=== PATIENT | male | born 1960 | race Caucasian/White ===

== ENCOUNTER 2018-08-04 19:06 | Observation (INO) ==
[2018-08-04 19:24] LABS: Basophils # 0.1 K/mm3 (0-0.2); Basophils % 1.3 % (0.1-2.0); Eosinophils # 0.3 K/mm3 (0.0-0.4); Eosinophils % 4.9 % (0.1-12.0); Hematocrit 44.1 % (42.0-52.0); Hemoglobin 14.3 g/dL (14.1-18.0); Lymphocytes # 2.3 K/mm3 (0.7-4.5); Lymphocytes % 33.2 % (10-50); Mean Corpuscular HGB Conc 32.5 g/dL (31.8-35.4); Mean Corpuscular Volume 88.6 fl (80-94); Mean Platelet Volume 8.2 fl (7.4-10.4); Monocytes # 0.4 K/mm3 (0.1-1.0); Monocytes % 5.9 % (1.7-9.3); Neutrophils # 3.8 K/mm3 (1.8-7.8); Neutrophils % 54.6 % (37.0-80.0); Platelet Count 193 K/mm3 (142-424); Red Blood Count 4.97 M/mm3 (4.60-6.20); Red Cell Distribution Width 13.7 % (11.5-17.5)
[2018-08-04 19:40] LABS: Anion Gap 12.8 mEq/L (5-15); Blood Urea Nitrogen 15 mg/dL (7-18); Carbon Dioxide 28 mmol/L (21.0-32.0); Chloride 105 mmol/L (98-107); Glucose 119 mg/dL (74-106); Sodium 142 mmol/L (136-145)
--- NOTE | 2018-08-04 20:47 | Emergency Department Note ---
ED Disposition Clinical Impression: Obesity (BMI 30-39.9), Tobacco use Chest pain Qualifiers: Chest pain type: precordial pain Qualified Code(s): R07.2 - Precordial pain Disposition: Admitted as Observation Condition on Discharge: Good - Critical Care Critical Care Time: No Attestation: On 08/04/18, the high probability of a clinically significant, sudden or life threatening deterioration of the following system(s) required my full and direct attention, intervention and personal management. The time I documented below is in addition to time spent performing reported procedures but includes the following listed in this critical care notation. Medical Decision Making - Medical Records Medical records reviewed: Yes: I reviewed the patient's medical records. - Anthony Inquiry Pt receiving controlled substance: No Vital Signs: 08/04/18 19:07 08/04/18 19:37 08/04/18 20:40 Temperature 98.2 F Temperature Source Oral Pulse Rate [Right Brachial] 83 77 73 Respiratory Rate 18 19 18 Blood Pressure [Right Arm] 142/88 H 120/60 112/65 Blood Pressure Mean [Right Arm] 106 80 80 Blood Pressure Source [Right Arm] Automatic Cuff Automatic Cuff Automatic Cuff Blood Pressure Position [Right Arm] Sitting Supine Sitting 02 Sat by Pulse Oximetry 98 91 L 96 Oxygen Delivery Method Room Air Room Air Room Air - Lab Data Lab results reviewed: Yes: I reviewed the patient's lab results. Lab Results 08/04/18 19:10: WBC 7.0, RBC 4.97, Hgb 14.3, Hct 44.1, MCV 88.6, MCH 28.8, MCHC 32.5, RDW 13.7, Plt Count 193, MPV 8.2, Neut % (Auto) 54.6, Lymph % (Auto) 33.2, Holt % (Auto) 5.9, Eos % (Auto) 4.9, Baso % (Auto) 1.3, Neut # (Auto) 3.8, Lymph # (Auto) 2.3, Holt # (Auto) 0.4, Eos # (Auto) 0.3, Baso # (Auto) 0.1 08/04/18 19:10: Sodium 142, Potassium 3.8, Chloride 105, Carbon Dioxide 28, Anion Gap 12.8, BUN 15, Creatinine 1.18, Estimated Creat Clear 115, Estimated GFR 64, Est GFR ( Amer) 77, Glucose 119 H, Calcium 9.0, Troponin I < 0.02 Result diagrams: 08/04/18 19:10 08/04/18 19:10 Orders (Tests/Meds): ED MEDICATIONS Discontinued Medications Generic Name Dose Route Start Last Admin Trade Name Jessica PRN Reason Stop Dose Admin Aspirin 324 mg 08/04/18 19:14 08/04/18 19:31 Aspirin 81mg Chewable Tablet PO 08/04/18 19:15 324 mg ONCE ONE Administration Famotidine 20 mg 08/04/18 19:14 08/04/18 19:31 Pepcid 20mg/2ml Vial IV 08/04/18 19:15 20 mg ONCE ONE Administration Metoclopramide HCl 10 mg 08/04/18 19:14 08/04/18 19:31 Reglan 10mg/2ml Vial IVP 08/04/18 19:15 10 mg ONCE ONE Administration Nitroglycerin 1 gm 08/04/18 20:40 08/04/18 20:50 Nitroglycerin 1 Inch Oint Udp TD 08/04/18 20:41 1 gm ONCE ONE Administration ORDERS Category Date Time Status XR chest 2V Stat Exams 08/04/18 19:13 Taken ECG Request by /Nse Stat Y 08/04/18 19:13 Ordered - Radiology Data #1 Image(s): Chest Image Reviewed: Yes I reviewed the patient's radiology image Preliminary Findings: Normal/NAD - ECG Data Tracing #1 Normal Sinus Rhythm: Yes Ischemic changes: non-specific ST-T wave changes ECG compared to prior tracings: there are no prior tracings available for comparison Chest Pain HPI - General Chief Complaint: Chest Pain Stated Complaint: CP Time Seen by Provider: 08/04/18 20:00 Mode of Arrival: Ambulatory Source of Information: Patient, Spouse, Medical Record Limitations: No Limitations Description of Symptoms (Recalled from ER Triage Doc. by RN): Pt c/o cp that started this morning. NO other symptoms reported at this time. - History of Present Illness HPI narrative: pt with new onset of chest pain which was described as tightness and lasted 3-4 hrs and then returned this pm - he has no known heart disease - also has episode s of esophageal spasm over the last few months but pain today was different MD complaint: chest pain indicative of cardiac Onset (ago): hour(s) Duration: now resolved Activity at onset: during rest Pain location: left chest Severity: moderate Quality: tightness Associated symptoms: nausea Risk Factors for CAD: Family Hx of CAD, Smoking Treatments prior to or on arrival for Cardiac Chest Pain: none - JACKIE Score for Non-Stemi Age of Patient: 50-59 years old Heart Rate: 70-89 bpm Systolic Blood Pressure: 140-159 mmHg Serum Creatinine: 0.80-1.19 mg/dl CHF Killip Class: I-No CHF Other Risk Factors: None Non-Stemi Risk Score: 81 - Related Data Home Medications Medication Instructions Recorded Confirmed No Known Home Medications 08/04/18 08/04/18 Allergies Allergy/AdvReac Type Severity Reaction Status Date / Time No Known Allergies Allergy Verified 08/04/18 19:11 [facility] History - Hepatitis A Screen Drug use history?: No High risk sexual behaviors?: No History of sexually transmitted infection?: No Currently employed?: No Childcare worker?: No Do you have indoor plumbing?: Yes Do you have electricity?: Yes Attestation statement:: This patient has been screened for Hepatitis A risk factors. I have reviewed the patient's past medical history: Yes - Social History Smoking Status: Current every day smoker # Packs/Day (cigarettes): 1 Alcohol Intake: never Occupational Status: employed Housing: house - Psychiatric History Expresses thoughts of harming self/others: None Suicide Plan Description: No Plan ROS Obtained: Yes All systems reviewed & no additional complaints - Constitutional Constitutional: Denies fever(s) - Eyes Eyes: Denies change in vision - ENT Ears, Nose, Mouth, and Throat: Denies sore throat - Cardiovascular Cardiovascular: Reports chest pain - Respiratory Respiratory: No cough - Gastrointestinal Gastrointestingal: Denies: abdominal pain - Genitourinary Male Genitourinary: Denies hematuria - Musculoskeletal Musculoskeletal: Denies joint pain, Denies joint swelling - Integumentary/Breasts Skin/Breast: Denies rash - Neurologic Neurologic: Denies seizure-like activity Physical Exam - General General appearance: alert, obese - Head Head exam: normocephalic - Eye Eye exam: Present: PERRL, EOMI. Absent: scleral icterus - ENT ENT exam: Present: mucous membranes moist - Neck Neck exam: Present: trachea midline - Respiratory Respiratory exam: Present: normal lung sounds bilaterally. Absent: respiratory distress - Cardiovascular Cardiovascular exam: Present: regular rate, systolic murmur - Abdominal Exam Abdominal exam: Present: soft - Extremities Exam Extremities exam: Present: full ROM - Neurological Exam Neurological exam: Present: alert, oriented X3, CN II-XII intact - Psychiatric Psychiatric exam: Present: normal affect - Skin Skin exam: Absent: rash
[2018-08-05 06:26] LABS: Basophils # 0.1 K/mm3 (0-0.2); Basophils % 1.3 % (0.1-2.0); Eosinophils # 0.4 K/mm3 (0.0-0.4); Eosinophils % 5.3 % (0.1-12.0); Hematocrit 41.9 % (42.0-52.0); Hemoglobin 13.7 g/dL (14.1-18.0); Lymphocytes # 3.1 K/mm3 (0.7-4.5); Lymphocytes % 45.8 % (10-50); Mean Corpuscular HGB Conc 32.8 g/dL (31.8-35.4); Mean Corpuscular Volume 90.4 fl (80-94); Mean Platelet Volume 8.3 fl (7.4-10.4); Monocytes # 0.4 K/mm3 (0.1-1.0); Monocytes % 6.1 % (1.7-9.3); Neutrophils # 2.8 K/mm3 (1.8-7.8); Neutrophils % 41.5 % (37.0-80.0); Platelet Count 173 K/mm3 (142-424); Red Blood Count 4.63 M/mm3 (4.60-6.20); Red Cell Distribution Width 13.7 % (11.5-17.5); White Blood Count 6.7 K/mm3 (4.8-10.8)
[2018-08-05 06:34] LABS: Anion Gap 10.8 mEq/L (5-15); Calcium 8.4 mg/dL (8.5-10.1); Chol/HDL Ratio 6.2 (1-3.5)
--- NOTE | 2018-08-05 07:27 | Consult Report ---
History of Present Illness Consult date: 08/05/18 Requesting physician: Lan Rico Consult reason: chest pain Chief complaint: chest pain Additional Medical History:: 1. Tobacco use, 1/2 pack/day x 3 years, restarted after 28 years of not smoking 2. Overweight 3. Family history of Alzheimer's and his mother and cancer in his father 4. LDL 122, HDL 31, 08/05/2018 History of present illness: 58-year-old white male with complaint of chest pain from right shoulder to the left shoulder with some discomfort noted in the neck starting yesterday morning and lasting all day. No appreciable exacerbation or alleviation with work or rest. Some notation of chest burning sensation but denies associated shortness of breath, sweating or radiation of symptoms. Patient was at work when he informed coworkers of his discomfort who insisted he come to the ER for further evaluation. Patient's pain ranged from 2 out of 10 to an 8 out of 10 but was constant throughout the day. EKG is sinus rhythm with no acute ST segment changes. Troponins have returned normal overnight. Preliminary echocardiogram today shows preserved ejection fraction with no significant valvular heart disease. Patient quit smoking for 28 years but recently restarted half a pack a day due to stress. He has never been told he was diabetic and does not take medication for hypertension or hyperlipidemia. [facility] History *Have you ever received a pneumonia vaccine?: No *Have you received a flu vaccine this season?: No - *Social History Educational Level: Completed High School Smoking Status: Current every day smoker Tobacco Type: cigarettes # Packs/Day (cigarettes): 1 Alcohol Intake: never *Occupational Status:: employed Housing: house *Travel in the last 8 weeks: None - Psychiatric History Expresses thoughts of harming self/others: None Suicide Plan Description: No Plan Family Hx:: Cancer, Hypertension Meds Home Medications Medication Instructions Recorded Confirmed Type No Known Home Medications 08/04/18 08/04/18 History Allergies Allergy/AdvReac Type Severity Reaction Status Date / Time No Known Allergies Allergy Verified 08/04/18 19:11 Review of Systems - *Cardiovascular Reports chest pain, Denies shortness of breath - *Respiratory Denies cough, Denies shortness of breath - *Gastrointestinal Denies loose stools, Denies nausea, Denies vomiting - *Genitourinary Denies blood in urine - *Musculoskeletal Reports joint pain, Reports back pain - *Neurologic Denies lack of coordination, Denies seizure-like activity, Denies fainting Exam Vital signs and Labs for Last 24 Hours: Temp Pulse Resp BP Pulse Ox 98.3 F 61 19 139/79 96 08/05/18 04:00 08/05/18 04:00 08/05/18 04:00 08/05/18 04:00 08/05/18 04:00 Laboratory Results - last 24 hr 08/04/18 19:10: WBC 7.0, RBC 4.97, Hgb 14.3, Hct 44.1, MCV 88.6, MCH 28.8, MCHC 32.5, RDW 13.7, Plt Count 193, MPV 8.2, Neut % (Auto) 54.6, Lymph % (Auto) 33.2, [place] % (Auto) 5.9, Eos % (Auto) 4.9, Baso % (Auto) 1.3, Neut # (Auto) 3.8, Lymph # (Auto) 2.3, [place] # (Auto) 0.4, Eos # (Auto) 0.3, Baso # (Auto) 0.1 08/04/18 19:10: Sodium 142, Potassium 3.8, Chloride 105, Carbon Dioxide 28, Anion Gap 12.8, BUN 15, Creatinine 1.18, Estimated Creat Clear 115, Estimated GFR 64, Est GFR ( Amer) 77, Glucose 119 H, Calcium 9.0, Troponin I < 0.02 08/05/18 00:36: Troponin I < 0.02 08/05/18 03:34: Troponin I < 0.02 08/05/18 05:26: WBC 6.7, RBC 4.63, Hgb 13.7 L, Hct 41.9 L, MCV 90.4, MCH 29.6, MCHC 32.8, RDW 13.7, Plt Count 173, MPV 8.3, Neut % (Auto) 41.5, Lymph % (Auto) 45.8, [place] % (Auto) 6.1, Eos % (Auto) 5.3, Baso % (Auto) 1.3, Neut # (Auto) 2.8, Lymph # (Auto) 3.1, [place] # (Auto) 0.4, Eos # (Auto) 0.4, Baso # (Auto) 0.1 08/05/18 05:26: Sodium 143, Potassium 3.8, Chloride 107, Carbon Dioxide 29, Anion Gap 10.8, BUN 15, Creatinine 1.09, Estimated Creat Clear 127, Estimated GFR 70, Est GFR ( Amer) 84, Glucose 95 D, Calcium 8.4 L, Magnesium 1.9, Triglycerides 190, Cholesterol 191, LDL Cholesterol 122, VLDL Cholesterol 38, HDL Cholesterol 31, Cholesterol/HDL Ratio 6.2 H I & O for Last 24 hours: Intake & Output 08/02/18 08/03/18 08/04/18 08/05/18 11:59 11:59 11:59 11:59 Intake Total 354 / 354 Balance 354 / 354 Weight 265 lb - *Routine HEENT Exam Head: Present: normocephalic Eye: Present: EOMI, PERRL ENT: Present: mucous membranes moist - *Routine Neck Exam Present: supple. Absent: JVD, carotid bruit - *Routine Respiratory Exam Present: CTA bilaterally. Absent: accessory muscle use, rales, rhonchi, wheezes - *Routine Cardiovascular Exam Present: RRR. Absent: murmur, gallop, rubs - *Routine Abdominal Exam Present: soft. Absent: tenderness, distended, guarding - *Routine Extremities Exam Absent: edema, calf tenderness - *Routine Neurological Exam Present: alert, oriented X3, moving all extremities Assessment and Plan (1) Chest pain Current visit: Yes Status: Acute Qualifiers: Chest pain type: precordial pain Qualified Code(s): R07.2 - Precordial pain Category: Medical Code(s): R07.9 - Chest pain, unspecified (2) Obesity (BMI 30-39.9) Current visit: Yes Status: Acute Category: Medical Code(s): E66.9 - Obesity, unspecified (3) Tobacco use Current visit: Yes Status: Acute Category: Medical Code(s): Z72.0 - Tobacco use - Assessment and plan all Dx Assessment and Plan for all problems:: 1. Prolonged chest pain with normal troponins, EKG and essentially normal echo with preliminary reading. Recommend proceeding with routine stress test this a.m. If patient develops recurrent chest pain or EKG abnormalities then would recommend further evaluation. 2. Official echocardiogram reading pending. 3. Further recommendations to follow.
--- NOTE | 2018-08-05 07:30 | Pharmacy Consult Notes ---
[facility] Pharmacy VTE Monitoring - Patient Demographics Admission date: 08/04/18 Report Date: 08/05/18 Time: 07:30 Allergies/Adverse Reactions: Patient Allergies No Known Allergies Allergy (Verified 08/04/18 19:11) Height: 1.78 m Weight: 120.202 kg Patient Problems: Current Active Problems (Updated 08/04/18 @ 21:24 by Lan Rico MD) Chest pain (Acute) Obesity (BMI 30-39.9) (Acute) Tobacco use (Acute) - VTE Risk Labs: VTE Related Lab Results Hgb 13.7 g/dL (14.1-18.0) L 08/05/18 05:26 Hct 41.9 % (42.0-52.0) L 08/05/18 05:26 Plt Count 173 K/mm3 (142-424) 08/05/18 05:26 BUN 15 mg/dL (7-18) 08/05/18 05:26 Creatinine 1.09 mg/dL (0.70-1.30) 08/05/18 05:26 Estimated Creat Clear 127 mL/min (50-200) 08/05/18 05:26 Was VTE Risk Assessment Performed: Yes VTE Score: 2 Clinical Trial Participant: No - Prophylaxis VTE Prophylaxis Ordered?: Yes Types of VTE Prophylaxis: TEDS Knee High
--- NOTE | 2018-08-05 12:50 | H&P/Discharge Summary ---
General - General Admission date:: 08/04/18 Discharge date: 08/05/18 *Admission Date: 08/04/18 *Chief complaint: chest pain *History of present illness: 58-year-old white male with complaint of chest pain from right shoulder to the left shoulder with some discomfort noted in the neck starting yesterday morning and lasting all day. No appreciable exacerbation or alleviation with work or rest. Some notation of chest burning sensation but denies associated shortness of breath, sweating or radiation of symptoms. Patient was at work when he informed coworkers of his discomfort who insisted he come to the ER for further evaluation. Patient's pain ranged from 2 out of 10 to an 8 out of 10 but was constant throughout the day. EKG is sinus rhythm with no acute ST segment changes. Troponins have returned normal overnight.- Pt states he received meds in ed for heart burn and it helped. Preliminary echocardiogram today shows preserved ejection fraction with no significant valvular heart disease. Patient quit smoking for 28 years but recently restarted half a pack a day due to stress. He has never been told he was diabetic and does not take medication for hypertension or hyperlipidemia.-per sunil prado [facility] History I have reviewed the patient's past medical history: Yes *Have you ever received a pneumonia vaccine?: No *Have you received a flu vaccine this season?: No - *Social History Educational Level: Completed High School Smoking Status: Current every day smoker Tobacco Type: cigarettes # Packs/Day (cigarettes): 1 Alcohol Intake: never *Occupational Status:: employed Housing: house *Travel in the last 8 weeks: None - Psychiatric History Expresses thoughts of harming self/others: None Suicide Plan Description: No Plan Family Hx:: Cancer, Hypertension Review of Systems - Constitutional Denies chills, Denies fatigue, Denies fever(s), Denies lack of energy - Eyes Denies change in vision - ENT Denies neck pain - *Cardiovascular Reports chest pain, Reports chest pain at rest, Denies generalized swelling - *Respiratory Denies chest congestion - *Gastrointestinal Denies loose stools - *Genitourinary Denies urinary frequency - *Musculoskeletal Denies neck pain - Integumentary/Breasts Denies rash - *Neurologic Denies abnormal movements, Denies lack of coordination, Denies seizure-like activity, Denies fainting, Denies weakness - Psychiatric Denies anxiety, Denies panic attacks - Endocrine Denies flushing - Hematologic/Lymphatic Denies enlarged lymph nodes - Allergic/Immunologic Denies itchy eyes Exam Vital signs and Labs for Last 24 Hours: Temp Pulse Resp BP Pulse Ox 97.9 F 61 18 111/63 99 08/05/18 11:29 08/05/18 11:29 08/05/18 11:29 08/05/18 11:29 08/05/18 11:29 Laboratory Results - last 24 hr 08/04/18 19:10: WBC 7.0, RBC 4.97, Hgb 14.3, Hct 44.1, MCV 88.6, MCH 28.8, MCHC 32.5, RDW 13.7, Plt Count 193, MPV 8.2, Neut % (Auto) 54.6, Lymph % (Auto) 33.2, [place] % (Auto) 5.9, Eos % (Auto) 4.9, Baso % (Auto) 1.3, Neut # (Auto) 3.8, Lymph # (Auto) 2.3, [place] # (Auto) 0.4, Eos # (Auto) 0.3, Baso # (Auto) 0.1 08/04/18 19:10: Sodium 142, Potassium 3.8, Chloride 105, Carbon Dioxide 28, An ion Gap 12.8, BUN 15, Creatinine 1.18, Estimated Creat Clear 115, Estimated GFR 64, Est GFR ( Amer) 77, Glucose 119 H, Calcium 9.0, Troponin I < 0.02 08/05/18 00:36: Troponin I < 0.02 08/05/18 03:34: Troponin I < 0.02 08/05/18 05:26: WBC 6.7, RBC 4.63, Hgb 13.7 L, Hct 41.9 L, MCV 90.4, MCH 29.6, MCHC 32.8, RDW 13.7, Plt Count 173, MPV 8.3, Neut % (Auto) 41.5, Lymph % (Auto) 45.8, [place] % (Auto) 6.1, Eos % (Auto) 5.3, Baso % (Auto) 1.3, Neut # (Auto) 2.8, Lymph # (Auto) 3.1, [place] # (Auto) 0.4, Eos # (Auto) 0.4, Baso # (Auto) 0.1 08/05/18 05:26: Sodium 143, Potassium 3.8, Chloride 107, Carbon Dioxide 29, Anion Gap 10.8, BUN 15, Creatinine 1.09, Estimated Creat Clear 127, Estimated GFR 70, Est GFR ( Amer) 84, Glucose 95 D, Calcium 8.4 L, Magnesium 1.9, Triglycerides 190, Cholesterol 191, LDL Cholesterol 122, VLDL Cholesterol 38, HDL Cholesterol 31, Cholesterol/HDL Ratio 6.2 H I & O for Last 24 hours: Intake & Output 08/03/18 08/04/18 08/05/18 08/06/18 11:59 11:59 11:59 11:59 Intake Total 354 / 354 Balance 354 / 354 Weight 265 lb - Constitutional no acute distress - *Routine HEENT Exam Head: Present: normocephalic Eye: Present: EOMI, PERRL ENT: Present: mucous membranes moist - *Routine Neck Exam Present: supple. Absent: lymphadenopathy - *Routine Respiratory Exam Present: CTA bilaterally - *Routine Cardiovascular Exam Present: RRR - *Routine Abdominal Exam Present: soft, normoactive bowel sounds. Absent: tenderness - *Routine Extremities Exam Absent: cyanosis, clubbing, edema - *Routine Skin Exam Present: warm. Absent: rash - *Routine Neurological Exam Present: alert, oriented X3 Hospital Course Hospital Course: pt received iv meds for gerd in ed that relieved pain instantly. Pt had stress test today due to hx of smoking and obesity. Pt discharged home with negative cardiac work up. Cardiology consult obtained- see note. Pt will need to follow up as a outpt for more work up on gerd. Results Labs on day of discharge: Labs from last 24 hours 08/05/18 08/05/18 08/05/18 05:26 05:26 03:34 WBC 6.7 RBC 4.63 Hgb 13.7 L Hct 41.9 L MCV 90.4 MCH 29.6 MCHC 32.8 RDW 13.7 Plt Count 173 MPV 8.3 Neut % (Auto) 41.5 Lymph % (Auto) 45.8 [place] % (Auto) 6.1 Eos % (Auto) 5.3 Baso % (Auto) 1.3 Neut # (Auto) 2.8 Lymph # (Auto) 3.1 [place] # (Auto) 0.4 Eos # (Auto) 0.4 Baso # (Auto) 0.1 Sodium 143 Potassium 3.8 Chloride 107 Carbon Dioxide 29 Anion Gap 10.8 BUN 15 Creatinine 1.09 Estimated Creat Clear 127 Estimated GFR 70 Est GFR ( Amer) 84 Glucose 95 D Calcium 8.4 L Magnesium 1.9 Troponin I < 0.02 Triglycerides 190 Cholesterol 191 LDL Cholesterol 122 VLDL Cholesterol 38 HDL Cholesterol 31 Cholesterol/HDL Ratio 6.2 H 08/05/18 08/04/18 08/04/18 00:36 19:10 19:10 WBC 7.0 RBC 4.97 Hgb 14.3 Hct 44.1 MCV 88.6 MCH 28.8 MCHC 32.5 RDW 13.7 Plt Count 193 MPV 8.2 Neut % (Auto) 54.6 Lymph % (Auto) 33.2 [place] % (Auto) 5.9 Eos % (Auto) 4.9 Baso % (Auto) 1.3 Neut # (Auto) 3.8 Lymph # (Auto) 2.3 [place]ancock # (Auto) 0.4 Eos # (Auto) 0.3 Baso # (Auto) 0.1 Sodium 142 Potassium 3.8 Chloride 105 Carbon Dioxide 28 Anion Gap 12.8 BUN 15 Creatinine 1.18 Estimated Creat Clear 115 Estimated GFR 64 Est GFR ( Amer) 77 Glucose 119 H Calcium 9.0 Magnesium Troponin I < 0.02 < 0.02 Triglycerides Cholesterol LDL Cholesterol VLDL Cholesterol HDL Cholesterol Cholesterol/HDL Ratio - Additional Comments rounded with dr paredes all orders per dr paredes. DS: Diagnosis - Discharge Diagnosis (1) Chest pain Status: Acute (2) Obesity (BMI 30-39.9) Status: Acute (3) Tobacco use Status: Acute Discharge Plan - Patient Discharge Instructions ACTIVITY: Continue current activity DIET: continue same diet Patient Instructions: Nicotine Addiction, DI for Cardiac Stress Test, DI for Chest Pain - Follow up Plan Follow up with: Juan José Jeff MD [Staff Physician] - 1 week Disposition: Home, Self-Correction Medications: Home Medications Medication Instructions Recorded Confirmed Type No Known Home Medications 08/04/18 08/04/18 History Famotidine [Pepcid 20mg Tablet] 20 mg PO DAILY 30 Days #30 tab 08/05/18 Rx Prescriptions/Medication Reconciliation: New Famotidine [Pepcid 20mg Tablet] 20 mg PO DAILY 30 Days #30 tab No Action No Known Home Medications
--- NOTE | 2018-08-05 16:08 | Cardiology Report ---
PROCEDURE: 2-D M-mode and color Doppler study INDICATIONS FOR THE TEST: Chest pain + COPD Heart Murmur Tobacco Smoking+ Palpitations Fatigue Syncope Edema Hypertension Diabetes Mellitus Rheumatic Fever SOB NICOLE Obesity Hyperlipidemia Family History HD Additional History PATIENT INFORMATION HEIGHT:70 WEIGHT:260 GENDER: Male B/P:112/65 2-D/M-MODE INTERPRETATION: 2-D MEASUREMENTS OBSERVED VALUES IN CMS Right Ventricular Dimension (RVDd) 2.8 Interventricular Septum (Thickness)(IVsd) 1.5 Left Ventricular Internal Dimensions(LVIDd) 4.6 Left Ventricular Posterior Wall (Thickness)(LVPWd) 1.4 Aortic Root 3.3 Aortic Cusp Separation 2.1 Left Atrial Dimensions (LAD) 3.9 2D 1. Technically difficult study because of the patient's factor and poor acoustic windows 2. Left atrium is mildly enlarged, left ventricle is normal size, left ventricle wall thickness is upper limits of normal, there is preserved left ventricular systolic function, visually estimated ejection fraction 55% with no regional wall motion abnormality, endocardial surfaces are poorly visualized. 3. The right atrium and right ventricle appears to be moderately enlarged with normal contractility. 4. The aortic valve is minimally thickened and fibrosed. 5. The mitral and tricuspid valvular grossly normal. 6. The pulmonic valve is poorly visualized 7. No significant pericardial effusion noted. DOPPLER INTERROGATION: Doppler interrogation of the aortic, mitral and tricuspid valvular presence of mild mitral and tricuspid regurgitation, tricuspid regurgitation jet velocity is inadequate for calculation of the right ventricular systolic pressure, diastolic parameters are inconclusive. CONCLUSION: 1. Technically difficult study because of the patient's factors and poor acoustic windows 2. Biatrial enlargement, normal left ventricular size, visually estimated ejection fraction 55% with no regional wall motion abnormality, diastolic parameters are inconclusive. 3. Moderately enlarged right ventricle with normal contractility. 4. Mild mitral and tricuspid regurgitation 5. No significant pericardial effusion noted.
== END 2018-08-05 13:45 | disposition home or self-care (01) ==
LOC: 2ND 19:06 → ER 19:06 → 2ND 21:33
PROVIDERS: ADMIT Emergency Medicine; ATTEND Emergency Medicine
DX: E66.9 Obesity, unspecified; Z80.9 Family history of malignant neoplasm, unspecified; K21.9 Gastro-esophageal reflux disease without esophagitis; R07.9 Chest pain, unspecified; Z72.0 Tobacco use; Z81.8 Family history of other mental and behavioral disorders
CPT/HCPCS: 36415; 71020; 71046; 80048; 80061; 83735; 84484; 85025; 93005; 93017; 93306; 96374; 96375; 99284; G0378

== ENCOUNTER → 2019-08-10 13:19 | Outpatient (CLI) | payer BC, SELFPAY ==
[2019-08-10 13:28] LABS: Basophils # 0.1 K/mm3 (0-0.2); Eosinophils # 0.3 K/mm3 (0.0-0.4); Eosinophils % 4.8 % (0.1-12.0); Hemoglobin 15.7 g/dL (14.1-18.0); Lymphocytes # 2.7 K/mm3 (0.7-4.5); Lymphocytes % 38.6 % (10-50); Mean Corpuscular HGB Conc 33.4 g/dL (31.8-35.4); Mean Corpuscular Hemoglobin 31.7 pg (27.0-31.2); Mean Platelet Volume 9.5 fl (7.4-10.4); Monocytes # 0.4 K/mm3 (0.1-1.0); Monocytes % 5.8 % (1.7-9.3); Neutrophils # 3.5 K/mm3 (1.8-7.8); Neutrophils % 48.8 % (37.0-80.0); Platelet Count 204 K/mm3 (142-424); Red Blood Count 4.95 M/mm3 (4.60-6.20); Red Cell Distribution Width 14.6 % (11.5-17.5); White Blood Count 7.1 K/mm3 (4.8-10.8)
[2019-08-10 13:40] LABS: Chloride 105 mmol/L (98-107); Potassium 4.4 mmoL/L (3.5-5.1); Sodium 138 mmol/L (136-145)
[2019-08-10 13:42] LABS: Alanine Aminotransferase 30 U/L (12-78); Aspartate Amino Transferase 30 U/L (17-59); Blood Urea Nitrogen 15 mg/dl (9-20); Estimated Glomerular Filt Rate 69 ml/min (>60); GFR (African American) 83 ML/MIN (>60)
[2019-08-10 13:43] LABS: Albumin Level 3.9 g/dl (3.5-5.0); Albumin/Globulin Ratio 1.2 (1.1-1.8); Alkaline Phosphatase 69 U/L (38-126); Anion Gap 8.4 mEq/L (5-15); Bilirubin,Total 0.5 mg/dl (0.2-1.3); Calcium 9.1 mg/dl (8.4-10.2); Carbon Dioxide 29 mmol/L (22.0-30.0); Cholesterol 263 mg/dl (140-200); Globulin 3.2 g/dL (1.3-3.2); Glucose 100 mg/dl (74-100); Total Protein,Serum 7.1 g/dl (6.3-8.2); Triglycerides 334 mg/dl (30-150); VLDL Cholesterol 67 mg/dL (0-40)
[2019-08-10 13:44] LABS: Chol/HDL Ratio 5.4 (1-3.5); HDL Cholesterol 49 mg/dl (40-60)
[2019-08-10 13:55] LABS: Direct LDL Cholesterol 147.91 mg/dL (100-129)
[2019-08-10 14:02] LABS: T4 (Thyroxine) 6.6 ug/dl (5.53-11.0)
[2019-08-10 14:15] LABS: Thyroid Stimulating Hormone 3.63 uIU/mL (0.465-4.68)
[2019-08-14 08:33] LABS: 1,25 Dihydroxy Vitamin D 37 pg/mL (.); 1,25-Dihydroxy, Vitamin D-2 <10 pg/mL (.); 1,25-Dihydroxy, Vitamin D-3 37 pg/mL (.)
== END ==
PROVIDERS: Visit Provider Emergency Medicine
DX: R13.10 Dysphagia, unspecified (principal)
CPT/HCPCS: 80053; 80061; 82652; 84436; 84443; 85025

== ENCOUNTER → 2019-08-19 09:19 | Outpatient (CLI) | payer BC, SELFPAY ==
--- NOTE | 2019-08-19 09:20 | FL_ITS ---
PROCEDURE: FL BARIUM SWALLOW CLINICAL INDICATION: dysphagia especially with swallowing Herrera COMPARISON: No exams were available for comparison TECHNIQUE: In the upright position the patient was observed to swallow barium in both the AP and lateral view. The cervical esophagus was examined under fluoroscopy with images obtained. The patient was then placed prone in the right anterior oblique position and was observed to swallow barium with Valsalva technique . FLUOROSCOPY TIME: 1 minute 47 seconds FINDINGS: There was no evidence of aspiration. There was normal peristalsis. No filling defects or mucosal abnormalities. Spot films of the cervical esophagus while swallowing barium shows mild anterior osteophytic spurring at the C5-6 level causing mild posterior indentation of the barium column which could probably be a cause for the patient's symptoms. There is a small to moderate size sliding hiatal hernia but there is no significant GE reflux with the patient in the prone and supine positions. IMPRESSION: Mild degenerate changes lower cervical spine C5-6 level probably causing some dysphagia symptoms to solid foods along with a small to moderate-sized hiatal hernia Dictated by: Dr. Ashkan Brady MD 08/19/2019 10:[address] Ashkan Brady MD in [place] 08/19/2019 10:10
== END ==
PROVIDERS: PCP Emergency Medicine; Visit Provider Emergency Medicine
DX: R13.10 Dysphagia, unspecified (principal)
CPT/HCPCS: 74220

== ENCOUNTER → 2019-08-26 15:22 | Outpatient (CLI) | payer BC, SELFPAY ==
--- NOTE | 2019-08-26 15:24 | XR_ITS ---
PROCEDURE: XR CERVICAL SPINE 5V CLINICAL INDICATION: spurring on c5/c6 difficulty swallowing COMPARISON: No exams were available for comparison FINDINGS: There is normal alignment. Degenerative disc disease is present at C6-C7. There are mildly prominent anterior osteophytes at C5-C6 and C6-C7. There is minimal cervical curvature convex right. Mild facet arthritic changes are present on the left at C6-C7 and C4-C5. No fracture or dislocation. No lytic or blastic change. IMPRESSION: degenerative changes as described above Dictated by: Byron Watt MD 08/26/2019 17:11 Electronically signed by Byron Watt MD in [place] 08/26/2019 17:11
== END ==
PROVIDERS: PCP Emergency Medicine; Visit Provider Physician Assistant
DX: M25.78 Osteophyte, vertebrae (principal)
CPT/HCPCS: 72050

== ENCOUNTER 2019-09-08 15:26 | Emergency (ER) | payer BC, SELFPAY ==
[2019-09-08 15:53] VITALS: PULSE 91; RESP 16; TEMP 36.9; O2SAT 98; BMI 41.5
--- NOTE | 2019-09-08 15:58 | HMH.EDUTC ---
[facility] [place] Disposition Clinical Impression: Sinusitis Qualifiers: Sinusitis location: unspecified location Chronicity: acute Recurrence: non-recurrent Qualified Code(s): J01.90 - Acute sinusitis, unspecified Disposition: Home, Self-Care Condition on Discharge: Good Instructions: Sinusitis, DI for Sinusitis Prescriptions: Benzonatate [Tessalon Perle 100mg Cap] 100 mg PO TIDP PRN #30 cap PRN Reason: Cough Transmission Status: Received by [facility] #[id number] Azithromycin [Z-Jose F 250mg Tab*] 250 mg PO UD DOSE PK #6 tab Transmission Status: Received by [facility] #[id number] Referrals: Lan Rico MD [Primary Care Provider] - Time of Disposition: 16:04 Medical Decision Making - Medical Records Medical records reviewed: No: I reviewed the patient's medical records. - Anthony Inquiry Pt receiving controlled substance: No Vital Signs: 09/08/19 15:53 09/08/19 16:35 Temperature 98.5 F 98.3 F Temperature Source Oral Oral Pulse Rate 87 Pulse Rate [Right] 91 H Respiratory Rate 16 16 Blood Pressure 0/0 L Blood Pressure Source Automatic Cuff Blood Pressure Position Sitting 02 Sat by Pulse Oximetry 98 Oxygen Delivery Method Room Air Room Air [facility] [place] HPI - General Stated complaint: Sinus drainage Time Seen by Provider: 09/08/19 15:58 Mode of Arrival: Ambulatory Source of Information: Patient Limitations: No Limitations Description of Symptoms (Recalled from Triage Doc. by RN): PT c/o ear pain and popping when he lays down along with a cough HEENT Symptoms (Recalled from RN notes): Yes (ear pain/ cough) Resp Symptoms (Recalled from RN notes): No Skin Symptoms (Recalled from RN notes): No MS Symptoms (Recalled from RN notes): No Functional Status (Recalled from RN notes): na - History of Present Illness Provider Complaint: He c/o sinus pressure, bilateral ear pressure and a cough for the past past 4 days. - Related Data Previous Rx's Medication Instructions Recorded sildenafil (pulm.hypertension) 20 20 mg PO TID #30 tab 08/10/19 mg tablet phentermine 37.5 mg tablet 37.5 mg PO DAILY #30 tab 08/12/19 simvastatin 20 mg tablet 20 mg PO QHS #90 tab 08/15/19 prednisone 20 mg tablet 20 mg PO BID #10 tab 08/31/19 triamcinolone acetonide 0.05 % 1 applic TOPICAL BID #60 g 08/31/19 topical ointment Azithromycin [Z-Jose F 250mg Tab*] 250 mg PO UD DOSE PK #6 tab 09/08/19 Benzonatate [Tessalon Perle 100mg 100 mg PO TIDP PRN #30 cap 09/08/19 Cap] Allergies Allergy/AdvReac Type Severity Reaction Status Date / Time No Known Allergies Allergy Verified 09/02/19 11:52 - Worker's Comp Is this a Worker's Comp case?: No [facility] History - Hepatitis A Screen Drug use history?: No High risk sexual behaviors?: No History of sexually transmitted infection?: No Currently employed?: No Childcare worker?: No Do you have indoor plumbing?: Yes Do you have electricity?: Yes Attestation statement:: This patient has been screened for Hepatitis A risk factors. I have reviewed the patient's past medical history: Yes Medical History: Reports:: Hyperlipidemia Other Surgeries: Yes: Cholecystectomy Amputation: No Fractures: Yes (FINGERS,ANKLE AND SKULL) Comment: left hand,rt finger - Social History Smoking Status: Current every day smoker Tobacco Type: cigarettes # Packs/Day (cigarettes): 1 Alcohol Intake: never Substance Use Type: denies use Occupational Status: employed Housing: house Family Hx:: Cancer, Hypertension ROS Obtained: Yes All systems reviewed & no additional complaints - Constitutional Constitutional: Denies chills, Denies fever(s) - Eyes Eyes: Denies eye discharge - ENT Ears, Nose, Mouth, and Throat: Reports as per HPI - Cardiovascular Cardiovascular: Denies chest pain - Respiratory Respiratory: No chest congestion, Yes cough, No dyspnea, No coughing up blood, No stridor, No wheezing Physical Exam - General General appearance: alert, in no apparent distress -
[2019-09-08 16:35] VITALS: BP 0/0; PULSE 87; RESP 16; TEMP 36.8; O2SAT 98
== END 2019-09-08 16:36 | disposition home or self-care (01) ==
PROVIDERS: Emergency Provider Nurse Practitioner Family; PCP Emergency Medicine
DX: J01.90 Acute sinusitis, unspecified (principal); E78.5 Hyperlipidemia, unspecified; F17.210 Nicotine dependence, cigarettes, uncomplicated
CPT/HCPCS: 99201

== ENCOUNTER → 2019-11-01 14:53 | Outpatient (CLI) | payer BC, SELFPAY | PROVIDERS: PCP Emergency Medicine; Visit Provider Nurse Practitioner Family | DX: R06.2 Wheezing (principal); Z72.0 Tobacco use | CPT/HCPCS: 94060; 94726; 94729 ==

== ENCOUNTER → 2020-03-19 19:06 | Outpatient (CLI) | payer BC, SELFPAY ==
[2020-03-19 21:45] LABS: Amphetamine/Metha Screen,Urine Negative ng/ml (<1000); Barbiturates Screen,Urine Negative ng/ml (<200)
[2020-03-19 21:46] LABS: Benzodiazepines Screen,Urine Negative ng/ml (<200); Cannabinoid Screen,Urine Negative ng/ml (<50)
[2020-03-19 21:47] LABS: Cocaine Screen,Urine Negative ng/ml (<300)
[2020-03-19 21:48] LABS: Methadone Screen,Urine Negative ng/ml (<300); Opiate Screen,Urine Negative ng/ml (<300)
[2020-03-19 21:49] LABS: Phencyclidine Screen,Urine Negative ng/ml (<25)
== END ==
PROVIDERS: Visit Provider Emergency Medicine
DX: Z79.899 Other long term (current) drug therapy (principal)
CPT/HCPCS: 80305

== ENCOUNTER → 2020-05-29 16:06 | Outpatient (CLI) | payer BC, SELFPAY ==
--- NOTE | 2020-05-29 16:12 | XR_ITS ---
PROCEDURE: XR SHOULDER RT MIN 2V CLINICAL INDICATION: shoulder pain COMPARISON: No exams were available for comparison FINDINGS: No fracture or dislocation. No lytic or blastic change. There is normal mineralization. There is high-riding humeral head with moderate to severe subacromial stenosis which may be seen with rotator cuff tear. No significant osteoarthritic change apparent. Other findings:None. IMPRESSION: High-riding humeral head with subacromial stenosis Dictated by: Byron Watt MD 05/29/2020 16:33 Byron Watt MD in [place] 05/29/2020 16:33
[2020-05-29 21:11] LABS: Amphetamine/Metha Screen,Urine Negative ng/ml (<1000)
[2020-05-29 21:12] LABS: Barbiturates Screen,Urine Negative ng/ml (<200); Benzodiazepines Screen,Urine Negative ng/ml (<200)
[2020-05-29 21:13] LABS: Cannabinoid Screen,Urine Negative ng/ml (<50)
[2020-05-29 21:14] LABS: Cocaine Screen,Urine Negative ng/ml (<300); Methadone Screen,Urine Negative ng/ml (<300)
[2020-05-29 21:15] LABS: Opiate Screen,Urine Negative ng/ml (<300)
[2020-05-29 21:16] LABS: Phencyclidine Screen,Urine Negative ng/ml (<25)
== END ==
PROVIDERS: PCP Emergency Medicine; Visit Provider Nurse Practitioner Family
DX: M25.511 Pain in right shoulder (principal); Z79.899 Other long term (current) drug therapy
CPT/HCPCS: 73030; 80305

== ENCOUNTER → 2020-07-09 17:58 | Outpatient (CLI) | payer BC, SELFPAY ==
[2020-07-09 19:49] LABS: Amphetamine/Metha Screen,Urine Negative ng/ml (<1000); Barbiturates Screen,Urine Negative ng/ml (<200)
[2020-07-09 19:50] LABS: Benzodiazepines Screen,Urine Negative ng/ml (<200)
[2020-07-09 19:51] LABS: Cannabinoid Screen,Urine Negative ng/ml (<50); Methadone Screen,Urine Negative ng/ml (<300)
[2020-07-09 19:52] LABS: Cocaine Screen,Urine Negative ng/ml (<300); Opiate Screen,Urine Negative ng/ml (<300)
[2020-07-09 19:53] LABS: Phencyclidine Screen,Urine Negative ng/ml (<25)
== END ==
PROVIDERS: Visit Provider Emergency Medicine
DX: M25.511 Pain in right shoulder (principal)
CPT/HCPCS: 80305

== ENCOUNTER → 2020-09-05 17:17 | Outpatient (CLI) | payer BC, SELFPAY ==
[2020-09-06 00:26] LABS: Amphetamine/Metha Screen,Urine Negative ng/ml (<1000); Barbiturates Screen,Urine Negative ng/ml (<200); Benzodiazepines Screen,Urine Negative ng/ml (<200); Cannabinoid Screen,Urine Negative ng/ml (<50); Cocaine Screen,Urine Negative ng/ml (<300); Methadone Screen,Urine Negative ng/ml (<300); Opiate Screen,Urine Negative ng/ml (<300); Phencyclidine Screen,Urine Negative ng/ml (<25)
== END ==
PROVIDERS: Visit Provider Emergency Medicine
DX: Z79.899 Other long term (current) drug therapy (principal)
CPT/HCPCS: 80305

== ENCOUNTER → 2020-11-05 17:48 | Outpatient (CLI) | payer BC, SELFPAY ==
[2020-11-05 18:40] LABS: Amphetamine/Metha Screen,Urine Negative ng/ml (<1000); Barbiturates Screen,Urine Negative ng/ml (<200)
[2020-11-05 18:41] LABS: Benzodiazepines Screen,Urine Negative ng/ml (<200)
[2020-11-05 18:42] LABS: Cannabinoid Screen,Urine Negative ng/ml (<50); Cocaine Screen,Urine Negative ng/ml (<300)
[2020-11-05 18:43] LABS: Methadone Screen,Urine Negative ng/ml (<300)
[2020-11-05 18:44] LABS: Opiate Screen,Urine Negative ng/ml (<300)
[2020-11-05 18:45] LABS: Phencyclidine Screen,Urine Negative ng/ml (<25)
== END ==
PROVIDERS: Visit Provider Emergency Medicine
DX: Z79.899 Other long term (current) drug therapy (principal)
CPT/HCPCS: 80305

== ENCOUNTER → 2020-12-31 14:40 | Outpatient (CLI) | payer BC, SELFPAY | PROVIDERS: PCP Emergency Medicine; Visit Provider Nurse Practitioner | DX: Z20.822 Contact with and (suspected) exposure to COVID-19 (principal) | CPT/HCPCS: C9803; U0003; U0005 ==

== ENCOUNTER 2021-01-21 08:05 | Outpatient (CLI) | payer BC, SELFPAY ==
[2021-01-21] VITALS (8 sets, daily range): BP systolic 115–148; BP diastolic 55–84; PULSE 82–95; RESP 20–22; TEMP 38.1; O2SAT 93–95
== END 2021-01-21 10:35 | disposition home or self-care (01) ==
LOC: INF 08:05
PROVIDERS: PCP Emergency Medicine; Visit Provider Emergency Medicine
DX: U07.1 COVID-19 (principal); Z23 Encounter for immunization
CPT/HCPCS: 96365

== ENCOUNTER → 2021-01-29 18:57 | Outpatient (CLI) | payer BC, SELFPAY ==
[2021-01-29 20:43] LABS: Amphetamine/Metha Screen,Urine Negative ng/ml (<1000)
[2021-01-29 20:44] LABS: Barbiturates Screen,Urine Negative ng/ml (<200)
[2021-01-29 20:45] LABS: Benzodiazepines Screen,Urine Negative ng/ml (<200); Cannabinoid Screen,Urine Negative ng/ml (<50)
[2021-01-29 20:46] LABS: Cocaine Screen,Urine Negative ng/ml (<300)
[2021-01-29 20:47] LABS: Methadone Screen,Urine Negative ng/ml (<300); Opiate Screen,Urine Negative ng/ml (<300)
[2021-01-29 20:48] LABS: Phencyclidine Screen,Urine Negative ng/ml (<25)
== END ==
PROVIDERS: Visit Provider Emergency Medicine
DX: Z79.899 Other long term (current) drug therapy (principal)
CPT/HCPCS: 80305

== ENCOUNTER → 2021-03-27 16:00 | Outpatient (CLI) | payer BC, SELFPAY ==
[2021-03-27 22:12] LABS: Amphetamine/Metha Screen,Urine Negative ng/ml (<1000); Barbiturates Screen,Urine Negative ng/ml (<200)
[2021-03-27 22:13] LABS: Benzodiazepines Screen,Urine Negative ng/ml (<200)
[2021-03-27 22:14] LABS: Cannabinoid Screen,Urine Negative ng/ml (<50); Cocaine Screen,Urine Negative ng/ml (<300)
[2021-03-27 22:15] LABS: Methadone Screen,Urine Negative ng/ml (<300)
[2021-03-27 22:16] LABS: Opiate Screen,Urine Negative ng/ml (<300)
[2021-03-27 22:17] LABS: Phencyclidine Screen,Urine Negative ng/ml (<25)
== END ==
PROVIDERS: Visit Provider Emergency Medicine
DX: Z79.899 Other long term (current) drug therapy (principal)
CPT/HCPCS: 80305

== ENCOUNTER → 2021-05-20 19:12 | Outpatient (CLI) | payer BC, SELFPAY ==
[2021-05-20 17:34] LABS: Amphetamine/Metha Screen,Urine Negative ng/ml (<1000); Barbiturates Screen,Urine Negative ng/ml (<200)
[2021-05-20 17:35] LABS: Benzodiazepines Screen,Urine Negative ng/ml (<200); Cannabinoid Screen,Urine Negative ng/ml (<50)
[2021-05-20 17:36] LABS: Cocaine Screen,Urine Negative ng/ml (<300)
[2021-05-20 17:37] LABS: Methadone Screen,Urine Negative ng/ml (<300)
[2021-05-20 17:38] LABS: Opiate Screen,Urine Negative ng/ml (<300); Phencyclidine Screen,Urine Negative ng/ml (<25)
== END ==
PROVIDERS: Visit Provider Emergency Medicine
DX: Z79.899 Other long term (current) drug therapy (principal)
CPT/HCPCS: 80305

== ENCOUNTER → 2021-07-16 12:00 | Outpatient (CLI) | payer BC, SELFPAY ==
[2021-07-16 19:05] LABS: Amphetamine/Metha Screen,Urine Negative ng/ml (<1000)
[2021-07-16 19:06] LABS: Barbiturates Screen,Urine Negative ng/ml (<200); Benzodiazepines Screen,Urine Negative ng/ml (<200)
[2021-07-16 19:07] LABS: Cannabinoid Screen,Urine Negative ng/ml (<50); Cocaine Screen,Urine Negative ng/ml (<300)
[2021-07-16 19:08] LABS: Methadone Screen,Urine Negative ng/ml (<300)
[2021-07-16 19:09] LABS: Opiate Screen,Urine Negative ng/ml (<300); Phencyclidine Screen,Urine Negative ng/ml (<25)
== END ==
PROVIDERS: PCP Emergency Medicine; Visit Provider Emergency Medicine
DX: M25.511 Pain in right shoulder (principal)
CPT/HCPCS: 80305

== ENCOUNTER 2021-10-28 12:00 | Emergency (ER) | payer BC, SELFPAY ==
[2021-10-28 12:10] VITALS: BP 134/74; PULSE 79; RESP 21; TEMP 36.9; O2SAT 96; BMI 40.4
--- NOTE | 2021-10-28 12:20 | XR_ITS ---
FINAL REPORT CLINICAL HISTORY: PAIN COMPARISON: 05/29/2020 FINDINGS: RIGHT SHOULDER Three views demonstrate no acute fracture or dislocation. There is mild degenerative change of the acromioclavicular joint. The visualized bony structures are well aligned. No soft tissue abnormality is seen. IMPRESSION: Mild degenerative change of the acromioclavicular joint. Reviewed, Interpreted and Dictated by Andrzej Bella III, MD Transcribed by Tracee Lloyd Authenticated and [facility]
[2021-10-28 12:40] VITALS: BP 134/74; PULSE 79; RESP 20; TEMP 36.9; O2SAT 96; BMI 40.4
--- NOTE | 2021-10-28 13:03 | EXP.UTC ---
Discharge Plan Disposition Patient Disposition: Home, Self-Care Condition: Good Prescriptions Prescriptions: New methylprednisolone [Medrol (Jose F)] 4 mg tablets,dose pack See Rx Instructions .Route .COMPLEX 6 Days Qty: 21 0RF Rx Instructions: taper pack; No Action triamcinolone acetonide 0.05 % ointment 1 applic topical BID Qty: 110 0RF sildenafil (pulm.hypertension) 20 mg tablet 20 mg PO TID Qty: 60 0RF Rx Instructions: administer doses at least 4-6 hours apart albuterol sulfate [Ventolin HFA] 90 mcg/actuation HFA aerosol inhaler 1 puff INHALATION Q6H Qty: 6.7 0RF Rx Instructions: administer with spacer hydrocodone-acetaminophen 5-325 mg tablet 1 tab PO TID PRN (Reason: pain) Qty: 90 0RF nitroglycerin 1 EACH patch 24 hour 1 patch transdermal DAILY Rx Instructions: allow nitrate-free interval of approx. 10-12 hrs per 24-hour period simvastatin 20 MG tablet 20 mg PO QHS Referrals Follow up/Referrals: Dante Rivera JR, MD [Physician] - See instructions Lan Rico MD [Primary Care Provider] - See instructions Activity Restrictions/Add. Instructions Additional Instructions/Restrictions: *RICE, Rest the extremity, Ice 15-20 minutes 3-4 times daily, Compress- wear the iván wrap as discussed as much as possible to help reduce swelling and pain, Elevate the extremity when at rest *Iván wrap is for support and help control swelling, use it except in the shower. Be sure that is not to tight but not to loose either *Elevate when resting? *Ibuprofen 600-800mg every 6-8 hours as needed for pain an inflammation if your doctor has said you can take it. If need something more can take Tylenol in between doses of Ibuprofen to help Immediately follow up with your family doctor for new or worsening of symptoms, or no noticeable improvement over the next 3-5 days Call Orthopedic office and make appointment for further evaluation and examination Clinical Impressions Clinical Impression: Right shoulder pain Instructions Patient Instructions: Shoulder Tendinopathy, DI for Rotator Cuff Injury, DI for Chronic Pain -- Adult Discharge ED Provider: Ilda Nicole [facility] General Stated complaint: R shoulder swollen Mode of Arrival: Ambulatory Source of Information: Patient Limitations: No Limitations Time Seen by Provider: 10/28/21 13:03 Description of Symptoms (Recalled from Triage Doc. by RN): PATIENT REPORTS PAIN RIGHT SHOULDER PAIN THAT STARTED APPROX 1 YEAR AGO. HE STATES THAT IN THE LAST 2-3 DAYS IT STARTED SWELLING AND HE WANTED TO GET IT CHECKED OUT. NO KNOWN INJURY HEENT Symptoms (Recalled from RN notes): No Resp Symptoms (Recalled from RN notes): No Skin Symptoms (Recalled from RN notes): No MS Symptoms (Recalled from RN notes): Yes Functional Status (Recalled from RN notes): WNL History of Present Illness Provider Complaint: Patient states that he hurt his shoulder about a year ago and was seen then but the last few days he has been having pain when he raises his arm, moves it certain ways and feels like it is swollen Denies new injury States that he was worried he may have torn something so he came in Related Data Home Medications Medication Instructions Recorded Confirmed nitroglycerin 0.3 mg/hr 1 patch transdermal DAILY Chest 09/30/19 09/06/21 transdermal 24 hour patch pain simvastatin 20 mg tablet 20 mg PO QHS Cholesterol 09/30/19 09/06/21 Previous Rx's Medication Instructions Recorded albuterol sulfate 90 mcg/actuation 1 puff inhalation Q6H #6.7 grams 09/06/21 aerosol inhaler (Ventolin HFA) hydrocodone 5 mg-acetaminophen 325 1 tab PO TID PRN pain #90 tabs 09/06/21 mg tablet sildenafil (pulm.hypertension) 20 20 mg PO TID High blood pressure 09/06/21 mg tablet #60 tabs triamcinolone acetonide 0.05 % 1 applic topical BID inflammation 09/06/21 topical ointment #110 grams methylprednisolone 4 mg tablets in See Rx Instructions .Route
[2021-10-28 14:10] VITALS: BP 134/74; PULSE 79; RESP 20; TEMP 36.9; O2SAT 96
== END 2021-10-28 14:13 | disposition home or self-care (01) ==
PROVIDERS: Emergency Provider Nurse Practitioner; PCP Emergency Medicine
DX: M25.511 Pain in right shoulder (principal)
CPT/HCPCS: 73030; 99212; G0463

== ENCOUNTER → 2021-10-30 06:26 | Outpatient (CLI) | payer BC, SELFPAY ==
[2021-10-30 18:48] LABS: Amphetamine/Metha Screen,Urine Negative ng/ml (<1000)
[2021-10-30 18:49] LABS: Barbiturates Screen,Urine Negative ng/ml (<200); Benzodiazepines Screen,Urine Negative ng/ml (<200)
[2021-10-30 18:50] LABS: Cannabinoid Screen,Urine Negative ng/ml (<50)
[2021-10-30 18:51] LABS: Cocaine Screen,Urine Negative ng/ml (<300); Methadone Screen,Urine Negative ng/ml (<300)
[2021-10-30 18:52] LABS: Opiate Screen,Urine Negative ng/ml (<300)
[2021-10-30 18:53] LABS: Phencyclidine Screen,Urine Negative ng/ml (<25)
== END ==
PROVIDERS: PCP Emergency Medicine; Visit Provider Emergency Medicine
DX: Z79.899 Other long term (current) drug therapy (principal)
CPT/HCPCS: 80305

== ENCOUNTER → 2021-12-25 15:20 | Outpatient (CLI) | payer BC, SELFPAY ==
[2021-12-25 17:42] LABS: Basophils # 0.1 K/mm3 (0-0.2); Basophils % 1.9 % (0.1-2.0); Eosinophils # 0.1 K/mm3 (0.0-0.4); Eosinophils % 2.3 % (0.1-12.0); Hemoglobin 14.9 g/dL (14.1-18.0); Lymphocytes % 34.2 % (10-50); Mean Corpuscular HGB Conc 32.4 g/dL (31.8-35.4); Mean Corpuscular Hemoglobin 31.4 pg (27.0-31.2); Mean Corpuscular Volume 96.9 fl (80-94); Mean Platelet Volume 9.9 fl (7.4-10.4); Monocytes # 0.4 K/mm3 (0.1-1.0); Monocytes % 6.8 % (1.7-9.3); Neutrophils # 3.2 K/mm3 (1.8-7.8); Neutrophils % 54.8 % (37.0-80.0); Platelet Count 213 K/mm3 (142-424); Red Blood Count 4.74 M/mm3 (4.60-6.20); Red Cell Distribution Width 14.8 % (11.5-17.5); White Blood Count 5.8 K/mm3 (4.8-10.8)
[2021-12-25 18:22] LABS: Amphetamine/Metha Screen,Urine Negative ng/ml (<1000)
[2021-12-25 18:23] LABS: Barbiturates Screen,Urine Negative ng/ml (<200)
[2021-12-25 18:24] LABS: Benzodiazepines Screen,Urine Negative ng/ml (<200)
[2021-12-25 18:25] LABS: Cocaine Screen,Urine Negative ng/ml (<300)
[2021-12-25 18:26] LABS: Methadone Screen,Urine Negative ng/ml (<300); Opiate Screen,Urine Negative ng/ml (<300)
[2021-12-25 18:27] LABS: Phencyclidine Screen,Urine Negative ng/ml (<25)
[2021-12-25 18:34] LABS: Cannabinoid Screen,Urine Negative ng/ml (<50)
[2021-12-25 19:01] LABS: Free T4 (Free Thyroxine) 1.06 ng/dl (0.78-2.19)
[2021-12-25 19:07] LABS: Alanine Aminotransferase 27 U/L (12-78); Albumin Level 4.4 g/dl (3.5-5.0); Albumin/Globulin Ratio 1.7 (1.1-1.8); Alkaline Phosphatase 93 U/L (38-126); Anion Gap 15.5 mEq/L (5-15); Aspartate Amino Transferase 41 U/L (17-59); Bilirubin,Total 0.7 mg/dl (0.2-1.3); Blood Urea Nitrogen 15 mg/dl (9-20); Calcium 9.4 mg/dl (8.4-10.2); Carbon Dioxide 28 mmol/L (22.0-30.0); Chloride 102 mmol/L (98-107); Chol/HDL Ratio 5.1 (1-3.5); Cholesterol 246 mg/dl (140-200); Estimated Glomerular Filt Rate 86 ml/min (>60); GFR (African American) 104 ML/MIN (>60); Globulin 2.6 g/dL (1.3-3.2); Glucose 89 mg/dl (74-100); HDL Cholesterol 48 mg/dl (40-60); Potassium 4.5 mmoL/L (3.5-5.1); Sodium 141 mmol/L (136-145); Triglycerides 119 mg/dl (30-150); VLDL Cholesterol 24 mg/dL (0-40)
[2021-12-25 19:24] LABS: Direct LDL Cholesterol 153.42 mg/dL (100-129)
[2021-12-25 19:36] LABS: Thyroid Stimulating Hormone 0.96 uIU/mL (0.465-4.68)
[2021-12-25 22:25] LABS: 25-OH Vitamin D, Total < 12.8 ng/mL (30-100)
== END ==
PROVIDERS: PCP Emergency Medicine; Visit Provider Emergency Medicine
DX: E78.5 Hyperlipidemia, unspecified (principal); E55.9 Vitamin D deficiency, unspecified; E66.9 Obesity, unspecified; Z68.36 Body mass index [BMI] 36.0-36.9, adult; Z79.899 Other long term (current) drug therapy; Z23 Encounter for immunization
CPT/HCPCS: 80053; 80061; 80305; 82306; 84439; 84443; 85025

== ENCOUNTER → 2022-02-24 10:28 | Outpatient (CLI) | payer BC, SELFPAY ==
[2022-02-25 10:01] LABS: Amphetamine/Metha Screen,Urine Negative ng/ml (<1000); Barbiturates Screen,Urine Negative ng/ml (<200)
[2022-02-25 10:02] LABS: Benzodiazepines Screen,Urine Negative ng/ml (<200)
[2022-02-25 10:03] LABS: Cannabinoid Screen,Urine Negative ng/ml (<50); Cocaine Screen,Urine Negative ng/ml (<300)
[2022-02-25 10:04] LABS: Methadone Screen,Urine Negative ng/ml (<300); Opiate Screen,Urine Negative ng/ml (<300)
[2022-02-25 10:05] LABS: Phencyclidine Screen,Urine Negative ng/ml (<25)
== END ==
PROVIDERS: PCP Emergency Medicine; Visit Provider Emergency Medicine
DX: Z79.899 Other long term (current) drug therapy (principal)
CPT/HCPCS: 80305

== ENCOUNTER → 2022-04-18 10:26 | Outpatient (CLI) | payer BC, SELFPAY ==
[2022-04-18 19:00] LABS: Amphetamine/Metha Screen,Urine Negative ng/ml (<1000)
[2022-04-18 19:01] LABS: Barbiturates Screen,Urine Negative ng/ml (<200); Benzodiazepines Screen,Urine Negative ng/ml (<200)
[2022-04-18 19:02] LABS: Cannabinoid Screen,Urine Negative ng/ml (<50); Cocaine Screen,Urine Negative ng/ml (<300)
[2022-04-18 19:03] LABS: Methadone Screen,Urine Negative ng/ml (<300)
[2022-04-18 19:04] LABS: Opiate Screen,Urine Negative ng/ml (<300); Phencyclidine Screen,Urine Negative ng/ml (<25)
== END ==
PROVIDERS: PCP Emergency Medicine; Visit Provider Emergency Medicine
DX: Z79.899 Other long term (current) drug therapy (principal)
CPT/HCPCS: 80305

== ENCOUNTER → 2022-04-18 23:38 | Outpatient (CLI) | payer BC, SELFPAY | PROVIDERS: PCP Emergency Medicine; Visit Provider Emergency Medicine | DX: Z79.899 Other long term (current) drug therapy (principal) ==

== ENCOUNTER → 2022-05-16 11:00 | Outpatient (CLI) | payer BC, SELFPAY ==
[2022-05-16 19:24] LABS: Amphetamine/Metha Screen,Urine Negative ng/ml (<1000)
[2022-05-16 19:25] LABS: Barbiturates Screen,Urine Negative ng/ml (<200)
[2022-05-16 19:26] LABS: Benzodiazepines Screen,Urine Negative ng/ml (<200)
[2022-05-16 19:27] LABS: Cannabinoid Screen,Urine Negative ng/ml (<50); Cocaine Screen,Urine Negative ng/ml (<300)
[2022-05-16 19:28] LABS: Methadone Screen,Urine Negative ng/ml (<300)
[2022-05-16 19:29] LABS: Opiate Screen,Urine Negative ng/ml (<300); Phencyclidine Screen,Urine Negative ng/ml (<25)
== END ==
PROVIDERS: PCP Emergency Medicine; Visit Provider Emergency Medicine
DX: Z79.899 Other long term (current) drug therapy (principal)
CPT/HCPCS: 80305

== ENCOUNTER → 2022-05-16 23:31 | Outpatient (CLI) | payer BC, SELFPAY | PROVIDERS: PCP Emergency Medicine; Visit Provider Emergency Medicine | DX: Z79.899 Other long term (current) drug therapy (principal) ==

== ENCOUNTER → 2022-07-15 15:08 | Outpatient (CLI) | payer BC, SELFPAY ==
[2022-07-15 15:15] LABS: Amphetamine/Metha Screen,Urine Negative ng/ml (<1000); Barbiturates Screen,Urine Negative ng/ml (<200)
[2022-07-15 15:16] LABS: Benzodiazepines Screen,Urine Negative ng/ml (<200)
[2022-07-15 15:17] LABS: Cannabinoid Screen,Urine Negative ng/ml (<50); Cocaine Screen,Urine Negative ng/ml (<300)
[2022-07-15 15:18] LABS: Methadone Screen,Urine Negative ng/ml (<300); Opiate Screen,Urine Negative ng/ml (<300)
[2022-07-15 15:19] LABS: Phencyclidine Screen,Urine Negative ng/ml (<25)
== END ==
PROVIDERS: PCP Emergency Medicine; Visit Provider Emergency Medicine
DX: M54.12 Radiculopathy, cervical region (principal)
CPT/HCPCS: 80305

== ENCOUNTER → 2022-09-17 15:30 | Outpatient (CLI) | payer BC, SELFPAY ==
[2022-09-17 19:17] LABS: Cannabinoid Screen,Urine Negative ng/ml (<50)
[2022-09-17 19:18] LABS: Methadone Screen,Urine Negative ng/ml (<300)
[2022-09-17 19:19] LABS: Opiate Screen,Urine Negative ng/ml (<300)
[2022-09-17 21:31] LABS: Amphetamine/Metha Screen,Urine Negative ng/ml (<1000)
[2022-09-17 22:53] LABS: Barbiturates Screen,Urine Negative ng/ml (<200); Benzodiazepines Screen,Urine Negative ng/ml (<200); Cocaine Screen,Urine Negative ng/ml (<300); Phencyclidine Screen,Urine Negative ng/ml (<25)
== END ==
PROVIDERS: PCP Emergency Medicine; Visit Provider Emergency Medicine
DX: M54.50 Low back pain, unspecified (principal)
CPT/HCPCS: 80305

== ENCOUNTER → 2022-11-04 11:00 | Outpatient (CLI) | payer BC, SELFPAY ==
[2022-11-04 20:45] LABS: Amphetamine/Metha Screen,Urine Negative ng/ml (<1000)
[2022-11-04 20:46] LABS: Barbiturates Screen,Urine Negative ng/ml (<200)
[2022-11-04 20:47] LABS: Benzodiazepines Screen,Urine Negative ng/ml (<200)
[2022-11-04 20:49] LABS: Cannabinoid Screen,Urine Negative ng/ml (<50); Cocaine Screen,Urine Negative ng/ml (<300)
[2022-11-04 20:50] LABS: Methadone Screen,Urine Negative ng/ml (<300)
[2022-11-04 20:51] LABS: Opiate Screen,Urine Negative ng/ml (<300); Phencyclidine Screen,Urine Negative ng/ml (<25)
== END ==
PROVIDERS: PCP Emergency Medicine; Visit Provider Emergency Medicine
DX: M54.12 Radiculopathy, cervical region (principal)
CPT/HCPCS: 80305

== ENCOUNTER → 2022-12-30 08:31 | Outpatient (CLI) | payer BC, SELFPAY ==
[2022-12-30 21:15] LABS: Amphetamine/Metha Screen,Urine Negative ng/ml (<1000)
[2022-12-30 21:16] LABS: Barbiturates Screen,Urine Negative ng/ml (<200); Benzodiazepines Screen,Urine Negative ng/ml (<200)
[2022-12-30 21:17] LABS: Cocaine Screen,Urine Negative ng/ml (<300)
[2022-12-30 21:18] LABS: Methadone Screen,Urine Negative ng/ml (<300)
[2022-12-30 21:19] LABS: Opiate Screen,Urine Negative ng/ml (<300); Phencyclidine Screen,Urine Negative ng/ml (<25)
[2022-12-30 21:28] LABS: Cannabinoid Screen,Urine Negative ng/ml (<50)
== END ==
PROVIDERS: PCP Emergency Medicine; Visit Provider Emergency Medicine
DX: Z79.899 Other long term (current) drug therapy (principal)
CPT/HCPCS: 80305

== ENCOUNTER → 2023-01-29 23:38 | Outpatient (CLI) | payer BC, SELFPAY ==
[2023-01-29 19:09] LABS: Basophils # 0.1 K/mm3 (0-0.2); Basophils % 1.3 % (0.1-2.0); Eosinophils # 0.4 K/mm3 (0.0-0.4); Eosinophils % 5.3 % (0.1-12.0); Hematocrit 46.3 % (42.0-52.0); Hemoglobin 15.5 g/dL (14.1-18.0); Lymphocytes # 2.4 K/mm3 (0.7-4.5); Lymphocytes % 36.9 % (10-50); Mean Corpuscular HGB Conc 33.4 g/dL (31.8-35.4); Mean Corpuscular Hemoglobin 32.3 pg (27.0-31.2); Mean Corpuscular Volume 96.6 fl (80-94); Mean Platelet Volume 9.8 fl (7.4-10.4); Monocytes # 0.4 K/mm3 (0.1-1.0); Monocytes % 5.5 % (1.7-9.3); Neutrophils # 3.3 K/mm3 (1.8-7.8); Platelet Count 174 K/mm3 (142-424); Red Cell Distribution Width 14.3 % (11.5-17.5); White Blood Count 6.5 K/mm3 (4.8-10.8)
[2023-01-29 19:23] LABS: Alanine Aminotransferase 26 U/L (12-78); Alkaline Phosphatase 88 U/L (38-126); Aspartate Amino Transferase 32 U/L (17-59); Bilirubin,Total 0.5 mg/dl (0.2-1.3); Blood Urea Nitrogen 15 mg/dl (9-20); Calcium 8.5 mg/dl (8.4-10.2); Carbon Dioxide 27 mmol/L (22.0-30.0); Chloride 105 mmol/L (98-107); Chol/HDL Ratio 6.8 (1-3.5); Cholesterol 267 mg/dl (140-200); Estimated Glomerular Filt Rate 62 ml/min (>60); GFR (African American) 74 ML/MIN (>60); Glucose 92 mg/dl (74-100); HDL Cholesterol 39 mg/dl (40-60); Triglycerides 321 mg/dl (30-150); VLDL Cholesterol 64 mg/dL (0-40)
[2023-01-29 19:34] LABS: Direct LDL Cholesterol 156.02 mg/dL (100-129)
[2023-01-29 19:41] LABS: 25-OH Vitamin D, Total 23.2 ng/mL (30-100)
[2023-01-29 19:54] LABS: Thyroid Stimulating Hormone 1.92 uIU/mL (0.465-4.68)
[2023-01-29 20:19] LABS: Barbiturates Screen,Urine Negative ng/ml (<200)
[2023-01-29 20:20] LABS: Benzodiazepines Screen,Urine Negative ng/ml (<200)
[2023-01-29 20:21] LABS: Cocaine Screen,Urine Negative ng/ml (<300); Opiate Screen,Urine Negative ng/ml (<300)
[2023-01-29 20:23] LABS: Phencyclidine Screen,Urine Negative ng/ml (<25)
[2023-01-29 20:29] LABS: Amphetamine/Metha Screen,Urine Negative ng/ml (<1000)
[2023-01-29 20:33] LABS: Methadone Screen,Urine Negative ng/ml (<300)
[2023-01-29 20:35] LABS: Cannabinoid Screen,Urine Negative ng/ml (<50)
[2023-01-29 21:01] LABS: Anion Gap 10.2 mEq/L (5-15); Potassium 4.2 mmoL/L (3.5-5.1); Sodium 138 mmol/L (136-145)
[2023-01-29 21:04] LABS: Albumin Level 4.4 g/dl (3.5-5.0); Albumin/Globulin Ratio 1.6 (1.1-1.8); Globulin 2.8 g/dL (1.3-3.2); Total Protein,Serum 7.2 g/dl (6.3-8.2)
== END ==
PROVIDERS: PCP Internal Medicine; Visit Provider Internal Medicine
DX: Z79.899 Other long term (current) drug therapy (principal); Z13.1 Encounter for screening for diabetes mellitus; E78.5 Hyperlipidemia, unspecified; R53.83 Other fatigue; E55.9 Vitamin D deficiency, unspecified; Z68.37 Body mass index [BMI] 37.0-37.9, adult
CPT/HCPCS: 80053; 80061; 80305; 82043; 82306; 84443; 85025

== ENCOUNTER 2023-03-02 18:18 | Outpatient (CLI) | payer BC, SELFPAY ==
[2023-03-02 20:11] LABS: Barbiturates Screen,Urine Negative ng/ml (<200); Benzodiazepines Screen,Urine Negative ng/ml (<200)
[2023-03-02 20:12] LABS: Cocaine Screen,Urine Negative ng/ml (<300)
[2023-03-02 20:13] LABS: Cannabinoid Screen,Urine Negative ng/ml (<50); Methadone Screen,Urine Negative ng/ml (<300)
[2023-03-02 20:14] LABS: Opiate Screen,Urine Negative ng/ml (<300)
[2023-03-02 20:15] LABS: Phencyclidine Screen,Urine Negative ng/ml (<25)
[2023-03-02 20:23] LABS: Amphetamine/Metha Screen,Urine Negative ng/ml (<1000)
[2023-03-07 12:41] LABS: Alprazolam Negative (Cutoff=100); Benzodiazepines Negative ng/mL (Cutoff=100); Clonazepam Negative (Cutoff=100); Flurazepam Negative (Cutoff=100); Lorazepam Negative (Cutoff=100); Midazolam Negative (Cutoff=100); Opiates Negative (Cutoff=100); Temazepam Negative (Cutoff=100); Triazolam Negative (Cutoff=100)
== END 2023-03-02 23:59 ==
LOC: LAB.DROPOF 18:19
PROVIDERS: Visit Provider Family Medicine
DX: Z79.899 Other long term (current) drug therapy (principal)
CPT/HCPCS: 80307; 80346; 80361; 80365; G0480